=== PATIENT | male | born 1990 | race Caucasian/White ===

== ENCOUNTER 2017-03-04 02:34 | Emergency (ER) | payer OTHER ==
[~2017-03-04] VITALS: Ht 170.2 cm; Wt 66.2 kg
[~2017-03-04 02:34] MED LIST: PENICILLIN V P500 MG PO; TRAMADOL HCL50 MG PO; TYLENOL325 MG PO; VIRTUSSIN AC L118 ML PO
[2017-03-04] MEDS ORDERED: CYCLOBENZAPRINE10 MG PO (02:50)
[2017-03-04] MEDS ORDERED: MOBIC7.5 MG PO (02:51)
[2017-03-04] MEDS ORDERED: ACETAMINOPHEN-1 EAC1 PO (04:44)
== END 2017-03-04 04:54 | disposition home or self-care (01) ==
LOC: ED 02:34
DX: M75.82 Other shoulder lesions, left shoulder (principal); F17.200 Nicotine dependence, unspecified, uncomplicated; Z98.890 Other specified postprocedural states; Z79.899 Other long term (current) drug therapy
CPT/HCPCS: 73030; 99283